=== PATIENT | male | born 1995 | race African-American/Black ===

== ENCOUNTER 2016-10-25 15:08 | Emergency (ER) | payer OTHER ==
[~2016-10-25] VITALS: Wt 52.2 kg
== END 2016-10-25 15:19 | disposition home or self-care (01) ==
LOC: ED 15:08
DX: R51 Headache (principal); R03.0 Elevated blood-pressure reading, without diagnosis of hypertension

== ENCOUNTER 2016-11-17 12:23 | Emergency (ER) | payer OTHER ==
[~2016-11-17] VITALS: Ht 167.6 cm; Wt 54.4 kg
[2016-11-17 13:37] LABS: BILIRUBIN NEGATIVE (NEGATIVE); BLOOD 3+ (NEGATIVE); CLARITY SL CLOUDY (CLEAR); COLOR YELLOW (YELLOW); GLUCOSE NEGATIVE (NEGATIVE); KETONE TRACE (NEGATIVE); LEUKO ESTERASE NEGATIVE (NEGATIVE); NITRITE NEGATIVE (NEGATIVE)
[2016-11-17 13:54] LABS: MUCOUS 2+; RBC TNTC rbc/hpf (0-2)
== END 2016-11-17 20:21 | disposition home or self-care (01) ==
LOC: ED 12:23
PROVIDERS: Nurse Practitioner Family
DX: S16.1XXA Strain of muscle, fascia and tendon at neck level, initial encounter (principal); Z00.8 Encounter for other general examination; V80.010A Animal-rider injured by fall from or being thrown from horse in noncollision accident, initial encounter; Y93.89 Activity, other specified; Y92.89 Other specified places as the place of occurrence of the external cause; Y99.8 Other external cause status

== ENCOUNTER 2017-08-15 12:38 | Emergency (ER) | payer OTHER ==
[~2017-08-15] VITALS: Wt 53.5 kg
== END 2017-08-15 12:56 | disposition home or self-care (01) ==
LOC: ED 12:38
DX: M54.5 Low back pain (principal); V80.010A Animal-rider injured by fall from or being thrown from horse in noncollision accident, initial encounter; Y93.89 Activity, other specified; Y92.89 Other specified places as the place of occurrence of the external cause; Y99.0 Civilian activity done for income or pay

== ENCOUNTER 2017-10-09 09:40 | Emergency (ER) | payer OTHER ==
[~2017-10-09] VITALS: Wt 54.4 kg
[2017-10-09] MEDS ORDERED: NAPROSYN500 MG PO (11:17)
== END 2017-10-09 11:46 | disposition home or self-care (01) ==
LOC: ED 09:40
DX: S80.01XA Contusion of right knee, initial encounter (principal); V80.010A Animal-rider injured by fall from or being thrown from horse in noncollision accident, initial encounter; Y93.52 Activity, horseback riding; Y92.89 Other specified places as the place of occurrence of the external cause; Y99.8 Other external cause status

== ENCOUNTER 2018-03-06 16:29 | Emergency (ER) | payer OTHER ==
[~2018-03-06] VITALS: Ht 167.6 cm; Wt 53.5 kg
[~2018-03-06 16:29] MED LIST: NAPROSYN500 MG PO
[2018-03-06] MEDS ORDERED: CEPHALEXIN500 M1 PO (17:42)
== END 2018-03-06 18:15 | disposition home or self-care (01) ==
LOC: ED 16:29
DX: L98.8 Other specified disorders of the skin and subcutaneous tissue (principal)

== ENCOUNTER 2019-11-05 15:24 | Emergency (ER) | payer OTHER ==
[~2019-11-05] VITALS: Wt 54.4 kg
[~2019-11-05 15:24] MED LIST changes: +CEPHALEXIN500 M1 PO; +CYCLOBENZAPRINE5 M3 PO; +Motrin,Rufen800 MG PO
== END 2019-11-05 16:50 | disposition home or self-care (01) ==
LOC: ED 15:24
DX: R51 Headache (principal); Z79.899 Other long term (current) drug therapy

== ENCOUNTER → 2019-11-15 | Day surgery (SDC) | payer OTHER ==
[~2019-11-15] VITALS: Wt 56.2 kg
[2019-11-15 13:23] LABS: BASO % 0.4 % (0.0-1.0); EOS # 0.1 10*3/uL (0.0-0.4); EOS % 0.9 % (1.0-4.0); HEMATOCRIT 45.2 % (42.0-52.0); LYMPH # 1.8 10*3/uL (1.3-4.4); LYMPH % 24.5 % (27.0-41.0); MEAN CELL VOLUME 92.6 fl (80.0-94.0); MEAN CORPUSCULAR HGB 30.5 pg (27.0-31.0); MEAN PLATELET VOLUME 10.7 fl (9.6-12.3); MONO # 0.5 10*3/uL (0.1-1.0); MONO % 6.3 % (3.0-9.0); NEUT % 67.8 % (47.0-73.0); PLATELET COUNT AUTOMATED 167 10*3/uL (130-400); RED BLOOD COUNT 4.88 10*6/uL (4.50-5.90); RED CELL DISTRI WIDTH 12.7 % (0-14.5); WHITE BLOOD COUNT 7.4 10*3/uL (4.8-10.8)
[2019-11-15 13:37] LABS: ALKALINE PHOSPHATASE 71 U/L (45-117); BUN 19 mg/dl (7-24); CHLORIDE 103 mmol/L (98-107); CREATININE 0.97 mg/dL (0.70-1.30); POTASSIUM 4.1 mmol/L (3.5-5.1); SGOT/AST 18 IU/L (3-35); SGPT/ALT 20 U/L (12-78); SODIUM 139 mmol/L (136-145); TOTAL PROTEIN 7.6 gm/dL (6.4-8.2)
[2019-11-15 13:54] VITALS: BP 108/64
[2019-11-15 14:52] VITALS: BP 104/45
[2019-11-15 15:05] VITALS: BP 99/50
[2019-11-15 15:17] VITALS: BP 104/63
[2019-11-15 15:32] VITALS: BP 103/60
[2019-11-15 15:47] VITALS: BP 107/57
== END | disposition home or self-care (01) ==
LOC: ED 10:16 → SDC 13:52
PROVIDERS: Nurse Practitioner Family
DX: T18.108A Unspecified foreign body in esophagus causing other injury, initial encounter (principal); R13.10 Dysphagia, unspecified; Y83.8 Other surgical procedures as the cause of abnormal reaction of the patient, or of later complication, without mention of misadventure at the time of the procedure; Y92.89 Other specified places as the place of occurrence of the external cause; Z87.891 Personal history of nicotine dependence; Z88.5 Allergy status to narcotic agent; Z98.890 Other specified postprocedural states; Z79.899 Other long term (current) drug therapy

== ENCOUNTER → 2020-11-21 | Outpatient (CLI) | payer OTHER | END | disposition home or self-care (01) | LOC: RAD 11:36 | PROVIDERS: ATTEND Nurse Practitioner Family | DX: M25.561 Pain in right knee (principal) ==

== ENCOUNTER 2020-12-24 11:14 | Emergency (ER) | payer OTHER ==
[~2020-12-24] VITALS: Ht 172.7 cm; Wt 56.7 kg
== END 2020-12-24 12:12 | disposition home or self-care (01) ==
LOC: ED 11:14
DX: M25.461 Effusion, right knee (principal)

== ENCOUNTER → 2021-01-13 | Outpatient (CLI) | payer OTHER | END | disposition home or self-care (01) | LOC: MRI 01-03 13:00 | PROVIDERS: ATTEND Orthopaedic Surgery | DX: S83.511A Sprain of anterior cruciate ligament of right knee, initial encounter (principal); S76.111A Strain of right quadriceps muscle, fascia and tendon, initial encounter; S83.231A Complex tear of medial meniscus, current injury, right knee, initial encounter; S83.271A Complex tear of lateral meniscus, current injury, right knee, initial encounter; S82.141A Displaced bicondylar fracture of right tibia, initial encounter for closed fracture; X58.XXXA Exposure to other specified factors, initial encounter; Y93.89 Activity, other specified; Y92.89 Other specified places as the place of occurrence of the external cause; Y99.8 Other external cause status ==

== ENCOUNTER → 2021-01-30 | Day surgery (SDC) | payer OTHER ==
[2021-01-27 10:30] VITALS: BP 106/58
[2021-01-27 11:00] LABS: BASO % 0.4 % (0.0-1.0); EOS # 0.1 10*3/uL (0.0-0.4); EOS % 1.6 % (1.0-4.0); HEMATOCRIT 44.5 % (42.0-52.0); LYMPH # 1.8 10*3/uL (1.3-4.4); LYMPH % 31.1 % (27.0-41.0); MEAN CELL VOLUME 92.9 fl (80.0-94.0); MEAN CORPUSCULAR HGB 31.1 pg (27.0-31.0); MEAN CORPUSCULAR HGB CONC 33.5 g/dl (33.0-37.0); MEAN PLATELET VOLUME 10.6 fl (9.6-12.3); MONO # 0.5 10*3/uL (0.1-1.0); MONO % 8.1 % (3.0-9.0); NEUT # 3.3 10*3/uL (2.3-7.9); NEUT % 58.8 % (47.0-73.0); PLATELET COUNT AUTOMATED 159 10*3/uL (130-400); RED BLOOD COUNT 4.79 10*6/uL (4.50-5.90); RED CELL DISTRI WIDTH 12.6 % (0-14.5); WHITE BLOOD COUNT 5.7 10*3/uL (4.8-10.8)
[~2021-01-30] VITALS: Ht 167.6 cm; Wt 59.0 kg
[~2021-01-30] MED LIST changes: +HYDROCODONE-AC1 EAC1 PO; +PROVENTIL HFA6.7 GM INH
[2021-01-30 07:34] VITALS: BP 104/60
[2021-01-30 09:26] VITALS: BP 134/60
[2021-01-30 09:41] VITALS: BP 117/72
[2021-01-30 09:56] VITALS: BP 119/71
[2021-01-30 10:11] VITALS: BP 115/67
[2021-01-30 10:24] VITALS: BP 109/61
== END | disposition home or self-care (01) ==
LOC: SDC 01-27 11:00
PROVIDERS: ATTEND Orthopaedic Surgery
DX: S83.231A Complex tear of medial meniscus, current injury, right knee, initial encounter (principal); S83.511A Sprain of anterior cruciate ligament of right knee, initial encounter; J45.909 Unspecified asthma, uncomplicated; X58.XXXA Exposure to other specified factors, initial encounter; Y93.89 Activity, other specified; Y92.89 Other specified places as the place of occurrence of the external cause; Y99.8 Other external cause status; Z98.890 Other specified postprocedural states; Z79.899 Other long term (current) drug therapy; Z20.822 Contact with and (suspected) exposure to COVID-19

== ENCOUNTER 2021-09-27 16:31 | Emergency (ER) | payer OTHER ==
[~2021-09-27] VITALS: Wt 53.5 kg
== END 2021-09-27 17:18 | disposition home or self-care (01) ==
LOC: ED 16:31
DX: S80.02XA Contusion of left knee, initial encounter (principal); W22.03XA Walked into furniture, initial encounter; Y93.89 Activity, other specified; Y92.89 Other specified places as the place of occurrence of the external cause; Y99.8 Other external cause status

== ENCOUNTER 2022-01-05 22:16 | Emergency (ER) | payer OTHER ==
[2022-01-06] MEDS ORDERED: NAPROSYN500 MG PO (00:42)
== END 2022-01-06 00:43 | disposition home or self-care (01) ==
LOC: ED 22:16
DX: S06.0X1A Concussion with loss of consciousness of 30 minutes or less, initial encounter (principal); S00.83XA Contusion of other part of head, initial encounter; W55.12XA Struck by horse, initial encounter; Y93.89 Activity, other specified; Y92.89 Other specified places as the place of occurrence of the external cause; Y99.8 Other external cause status